=== PATIENT | male | born 1985 | race Two or more races ===

== ENCOUNTER 2019-01-04 19:16 | Emergency (ER) | payer SELFPAY ==
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
[2019-01-04 20:53] LABS: ABSOLUTE EOSINOPHILS # (AUTO) 0.1 10^3/uL (0.0-0.6); ABSOLUTE LYMPHOCYTES (AUTO) 2.8 10^3/uL (0.5-4.7); ABSOLUTE MONOCYTES (AUTO) 0.5 10^3/uL (0.1-1.4); ABSOLUTE NEUT (AUTO) 5.7 10^3/uL (1.7-8.2); BASOPHILS % (AUTO) 0.3 % (0-2); EOSINOPHILS % (AUTO) 1.2 % (0-6); HEMATOCRIT 39.1 % (37.9-51.0); HEMOGLOBIN 12.8 g/dL (13.5-17.0); LYMPHOCYTES % (AUTO) 30.4 % (13-45); MEAN CORPUSCULAR HEMOGLOBIN 19.6 pg (27.0-33.4); MEAN CORPUSCULAR HGB CONC 32.7 g/dL (32.0-36.0); MEAN CORPUSCULAR VOLUME 60 fl (80-97); MONOCYTES % (AUTO) 5.8 % (3-13); PLATELET COUNT 208 10^3/uL (150-450); RED BLOOD COUNT 6.52 10^6/uL (4.35-5.55); RED CELL DISTRIBUTION WIDTH 16.4 % (11.5-14.0); SEGMENTED NEUTROPHILS % (AUTO) 62.3 % (42-78); TOTAL CELLS COUNTED % (AUTO) 100 %; WHITE BLOOD COUNT 9.1 10^3/uL (4.0-10.5)
[2019-01-04 21:02] LABS: APPEARANCE,URINE CLEAR; BILIRUBIN,URINE NEGATIVE (NEGATIVE); COLOR,URINE COLORLESS; GLUCOSE, URINE NEGATIVE (NEGATIVE); KETONES,URINE NEGATIVE (NEGATIVE); LEUKOCYTE ESTERASE,URINE NEGATIVE (NEGATIVE); NITRITE,URINE NEGATIVE (NEGATIVE); PROTEIN,URINE NEGATIVE (NEGATIVE); URINE SPECIFIC GRAVITY 1.003; UROBILINOGEN,URINE NEGATIVE mg/dL (<2.0)
--- NOTE | 2019-01-04 21:03 | RADIOLOGY REPORT (SQ) ---
2 VIEWS OF LEFT FOREARM EXAM DATE: 01/04/2019 8:11 PM CDT HISTORY: Forearm pain s/p injury. COMPARISON: None. FINDINGS: There is an old healed fracture of the mid ulnar diaphysis. No acute fracture or dislocation is seen. The joint spaces are preserved. No elbow joint effusion. Mild soft tissue swelling is present. IMPRESSION: 1. No acute fracture or malalignment. 2. Old healed ulnar fracture.
[2019-01-04 21:07] LABS: HYPOCHROMASIA 2+; POLYCHROMASIA 1+
[2019-01-04 21:08] LABS: ALANINE AMINOTRANSFERASE 24 U/L (21-72); ALBUMIN 4.6 g/dL (3.5-5.0); ALKALINE PHOSPHATASE 115 U/L (38-126); ANION GAP 12 (5-19); ASPARTATE AMINO TRANSFERASE 59 U/L (17-59); BILIRUBIN,DIRECT 0.3 mg/dL (0.0-0.4); BILIRUBIN,TOTAL 0.5 mg/dL (0.2-1.3); BLOOD UREA NITROGEN 8 mg/dL (7-20); CALCIUM 8.8 mg/dL (8.4-10.2); CARBON DIOXIDE 25 mmol/L (22-30); CHLORIDE 110 mmol/L (98-107); GLUCOSE 103 mg/dL (75-110); POIKILOCYTOSIS 1+; POTASSIUM 4.3 mmol/L (3.6-5.0); STOMATOCYTES 1+
[2019-01-04 21:09] LABS: OVALOCYTES SLIGHT; PLATELET COMMENT ADEQUATE
[2019-01-04 21:17] LABS: URINE AMPHETAMINES SCREEN NEGATIVE; URINE BARBITURATES SCREEN NEGATIVE; URINE BENZODIAZEPINES SCREEN NEGATIVE; URINE COCAINE SCREEN NEGATIVE; URINE MARIJUANA (THC) SCREEN NEGATIVE; URINE METHADONE SCREEN NEGATIVE; URINE PHENCYCLIDINE SCREEN NEGATIVE
[2019-01-04 21:22] LABS: ACETAMINOPHEN < 10 ug/mL (10-30); SALICYLATE < 1.0 mg/dL (2.0-20.0)
[2019-01-04] MEDS ORDERED: HALOPERIDOL LACTATE INJ 5 MG/1 ML VIAL IM ONE (21:24)
[2019-01-04 21:37] LABS: ALCOHOL 381 mg/dL (NONE DETECTED)
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
--- NOTE | 2019-01-05 01:07 | EKG REPORT ---
SEVERITY:- NORMAL ECG - SINUS RHYTHM : Confirmed by: Dana Mcconnell MD 05-Jan-2019 01:06:31
[2019-01-05 06:09] VITALS: BP 127/78
--- NOTE | 2019-01-05 09:26 | ER Document Report ---
Doctor's Note Notes: 01/05/19 09:24 Patient seen and examined. He states he is feeling improved today. States he is no longer feeling suicidal. Admits that he does need help with alcohol detox. He states he cannot remember the last time he went more than a day without drinking alcohol. States he is hopeful about getting help. Denies any pain or issues. Chart reviewed, patient is normocephalic and atraumatic. Pupils are equal round, reactive to light. Heart is regular rate and rhythm, lungs are clear to auscultation bilaterally. Patient makes good eye contact, cooperative with examiner, affect mood are congruent. Plan will likely be to discharge, help with alcohol dependence and abuse, mobile crisis.
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
[2019-01-05 14:13] LABS: PATH REVIEW PATHOLOGIST REVIEWED
== END 2019-01-05 11:24 | disposition home or self-care (01) ==
LOC: ER 19:16
DX: R45.851 Suicidal ideations (principal); F10.129 Alcohol abuse with intoxication, unspecified; W07.XXXA Fall from chair, initial encounter; Y92.511 Restaurant or cafe as the place of occurrence of the external cause; S59.912A Unspecified injury of left forearm, initial encounter; Y90.8 Blood alcohol level of 240 mg/100 ml or more
CPT/HCPCS: 93005; 99285; 96372; 36415; 80307 ×4; 85025; 80053; 81001; 73090; 93010; J1630

== ENCOUNTER 2020-05-02 22:57 | Emergency (ER) | payer SELFPAY ==
[2020-05-03] MEDS ORDERED: ACETAMINOPHEN 325 MG TABLET PO ONE (01:13)
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
[2020-05-03] MEDS ORDERED: KETOROLAC TROMETHAMINE 60 MG/2 ML SDV IM ONE (06:28)
[2020-05-03] MEDS ORDERED: HYDROCODONE/ACETAMINOPHEN 5-325 MG TABLET PO ONE (06:32)
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
[2020-05-03 07:24] LABS: APPEARANCE,URINE CLEAR; BILIRUBIN,URINE NEGATIVE (NEGATIVE); COLOR,URINE YELLOW; GLUCOSE, URINE NEGATIVE (NEGATIVE); KETONES,URINE NEGATIVE (NEGATIVE); LEUKOCYTE ESTERASE,URINE NEGATIVE (NEGATIVE); NITRITE,URINE NEGATIVE (NEGATIVE); PROTEIN,URINE NEGATIVE (NEGATIVE); URINE SPECIFIC GRAVITY 1.016; UROBILINOGEN,URINE NEGATIVE mg/dL (<2.0)
[2020-05-03 08:15] VITALS: BP 141/92
== END 2020-05-03 08:11 | disposition home or self-care (01) ==
LOC: ER 22:57
DX: S20.221A Contusion of right back wall of thorax, initial encounter (principal); S06.9X9A Unspecified intracranial injury with loss of consciousness of unspecified duration, initial encounter; R10.9 Unspecified abdominal pain; Y00.XXXA Assault by blunt object, initial encounter; F17.200 Nicotine dependence, unspecified, uncomplicated
CPT/HCPCS: 99284; 96372; 81001; 71101; J1885